=== PATIENT | female | born 1950 | race Caucasian/White ===

== ENCOUNTER 2017-07-29 14:24 | Observation (INO) | payer MEDICARE, OTHER ==
[2017-07-29] MEDS ORDERED: Nitroglycerin 2% Ointment 1 INCH/1 GM Packet ONE (15:16)
[2017-07-29 15:49] LABS: Troponin I Less than 0.010 ng/mL (< 0.028)
--- NOTE | 2017-07-29 16:13 | ULT ---
RIGHT UPPER QUADRANT ULTRASOUND 07/29/17 HISTORY: Right upper quadrant pain. FINDINGS: The pancreas and left lobe of the liver are not satisfactorily visualized. The right lobe of the live r demonstrates homogeneous echotexture without focal mass or intrahepatic ductal dilatation. The comm on duct measures 6 mm in diameter. There are echogenic foci with comet tail artifacts arising from th e wall of the gallbladder. No shadowing gallstones are seen. No gallbladder wall thickening or perich olecystic fluid is identified. there is mild prominence of the right renal pelvis. No free fluid seen in Doss's pouch. IMPRESSION: Adenomyomatosis of the gallbladder. POS: [facility]
[2017-07-29] MEDS ORDERED: Dronedarone HCl 400 MG TAB PO SCH (17:00)
[2017-07-29] MEDS ORDERED: Nitroglycerin 0.4 MG TAB (25 Tab Bottle) SL PRN (17:13)
[2017-07-29] MEDS ORDERED: Acetaminophen 325 MG TAB PO PRN (17:29)
[2017-07-29 17:35] VITALS: BMI 36.7
[2017-07-29 19:34] LABS: CKMB 0.6 ng/mL (0-6.6); Troponin I Less than 0.010 ng/mL (< 0.028)
[2017-07-29] MEDS: Famotidine 20 MG TAB PO SCH (19:43)
[2017-07-29] MEDS ORDERED: Famotidine/PF 20 mg/2ml Vial SLOW IVP SCH (21:00)
[2017-07-30] MEDS ORDERED: Dextrose 5 % And 0.9 % NaCl 1,000 ML IV SCH
--- NOTE | 2017-07-30 00:16 | HP ---
CHIEF COMPLIANT: Chest pain. HISTORY OF PRESENT ILLNESS: Patient is a 67-year-old female with past medical history of atrial fibr illation, status post ablation, hypothyroidism, low vitamin D level, who presented initially to [facility] ER with complaints of sore throat and chest pressure. Patient was given nitro x1, which relieved her sore throat and her chest pressure. Patient also underwent laboratory testing with initial trop onin, which was negative. EKG also was negative. No ST or T-wave depressions were noted except for T-wave inversions in the lateral leads. The patient was sent over to [facility] for cardi ac workup. Patient up in bed, alert, and oriented x3. Currently, does not have any chest pain or ch est pressure or chest discomfort. Patient stated that normally she is able to walk without any short ness of breath or any chest discomfort. The patient denies any orthopnea or PND. Patient states john t last night she did feel a little bit of palpitation; however, did not think much of it. Patient st ates that her chest pressure is similar to the one that she had when she was in atrial fibrillation. Patient also states that she has been feeling really well and has not felt this well since prior to her ablation. Patient also further states that she has had multiple stress tests, last year and lina chavez underwent a cardiac catheterization in approximately March or April. She does not recall th e exact time and she stated that her coronaries according to her top lift compresser, which is Dr. Ki cortez in [place], it was normal. Patient also states that she does have a significant history of cor onary artery disease with her mother, father, and her brothers, which concerns her. PAST MEDICAL HISTORY: Patient has history of hypothyroidism, atrial fibrillation status post ablatio n, hypothyroidism. PAST SURGICAL HISTORY: Includes hysterectomy, tonsillectomy, and bilateral knee surgery. HOME MEDICATIONS: Include Pradaxa 75 mg daily, diltiazem 240 mg daily, dronedarone, Multaq 400 mg p. o. b.i.d., Lasix 40 mg daily, Protonix 40 mg daily, sertraline 100 mg scheduled daily, [place] Thyroid 60 mg daily, fluticasone or Florinef 0.1 mg p.o. daily. ALLERGIES: She has allergies to LATEX and NATURAL RUBBER. FAMILY HISTORY: She has a family history, mother had open heart in age of 70 and had a stroke after that. Father had a history of CABG, unknown age when he had the CABG. Brother had open heart in his 60s that was her younger brother who . She has an older brother also has heart disease; however, he is still alive. SOCIAL HISTORY: She denies any history of smoking; however, does have secondhand smoking. Her husba nd denies occasional alcohol use. No other recreational drug use. REVIEW OF SYSTEMS: Ten point review of systems was performed, significant for chest discomfort, naus ea, but all other systems were negative except the one stated above. PHYSICAL EXAMINATION: VITAL SIGNS: Temperature of 98.4, pulse of 68, blood pressure 142/69, 96% on room air. GENERAL: Patient is awake, alert, oriented x3, does not appear in any distress. HEENT: Normocephalic, atraumatic. Mucous membranes are intact. No visible exudate noted on her ton sils. No erythema noted around her tonsils. NECK: Supple. No anterior cervical lymphadenopathy noted. LUNGS: Clear to auscultation. No rhonchi or wheezing noted. CARDIOVASCULAR: S1, S2 present, no murmurs, rubs, or gallops. Heart rate is regular. ABDOMEN: Soft, obese. Bowel sounds are present x2. She does have significant tenderness on palpati on of epigastric and right upper quadrant pain on palpation. No guarding. EXTREMITIES: No cyanosis, no clubbing, or edema noted. SKIN: Warm, moist, well perfused. No rashes or lesions noted. LABORATORY DATA: CBC: WBC of 8.6, hemoglobin of 15.3, hematocrit of 46.8, platelets of 234. D-dime r was less than 0.27. CK-MB was 0.8. Troponin initial was less than 0.010. Comprehensive metabolic panel: Sodium of 141, potassium of 4.1, chloride of 108, anion gap of 14, BUN of 14, creatinine 0.6 8, CO2 of 23. AST is 11, ALT was 10, alkaline phosphatase was mildly elevated at 226. Calcium was 9 .5. Glucose was 108, albumin was 4.1. EKG just showed some nonspecific T-wave inversions noted in V 4 and V5. She had a right upper quadrant ultrasound, which indicated adenomyomatosis of the gallblad leo. ASSESSMENT AND PLAN: Patient is a very pleasant 67-year-old female who presents to the ER with complaints of chest pain and pressure. 1. Chest pain, cardiac versus noncardiac. Patient's troponin x2 were negative. No significant EKG changes. I did review her EKG from her prior EKGs when she had her ablation done. She did have the same exact nonspecific T-wave changes. Patient did have a right upper quadrant ultrasound, which did not show any gallstones or any inflammation noted. She does have a mild alkaline phosphatase, which was mildly elevated. AST, ALT were normal. She does have some epigastric tenderness. We will star t her on Pepcid or will continue her Protonix that she gets at home. We will continue to trend tropo nins. We will start patient on aspirin 81 mg. We will check a lipid panel in the morning. We will get records from her top lift compresser in [place] since patient has had a series of stress test last and according to her, she had a cardiac catheterization since all her stress test has been negative . She did have a cardiac catheterization according to her in February, March, or April, which essentially, she was told, it was normal. Therefore, I will wait before I start her. If she had a r ecent cardiac catheterization in March or February with clean coronaries it would not be any benef it for her to get a repeat stress test. We will still keep n.p.o. after midnight just in case if the re are any of the results to come back in case I do have to do a stress test on her. 2. Mildly elevated alkaline phosphatase. Her right upper quadrant ultrasound just indicated she had an adenomyomatosis of the gallbladder, no gallstones were noted. No gallbladder wall thickening was noted either. We will continue to monitor. 3. Hypothyroidism. We will continue her home medications. 4. Atrial fibrillation, status post ablation, currently in sinus rhythm. We will continue her Martha xa and her diltiazem and Multaq.
[2017-07-30] MEDS ORDERED: Thyroid 60 MG TAB PO SCH (06:00)
[2017-07-30 06:19] LABS: ALT (SGPT) 9 U/L (8-55); AST (SGOT) 11 U/L (5-34); Albumin 3.4 g/dL (3.4-4.8); Alkaline Phosphatase 182 U/L (40-150); Anion Gap 12 mmol/L (10-20); BUN (Urea Nitrogen) 19 mg/dL (9.8-20.1); Bilirubin, Total 0.4 mg/dL (0.2-1.2); Calc. Creatinine Clearance 117 mL/min (70-130); Calcium 9.1 mg/dL (7.8-10.44); Carbon Dioxide 27 mmol/L (23-31); Cardiac Risk 4.7 (Less than 4.5); Chloride 108 mmol/L (98-107); Cholesterol 156 mg/dl (< 200 Desired); Estimated GFR-MDRD 75; Globulin 2.3 g/dL (2.4-3.5); Glucose 101 mg/dL (80-115); HDL Cholesterol 33 mg/dL (>60 Neg Risk); LDL Cholesterol, Calculated 104 mg/dL; Lipase 20 U/L (8-78); Potassium 4.6 mmol/L (3.5-5.1); Protein, Total 5.7 g/dL (6.0-8.3); Sodium 142 mmol/L (136-145); Triglycerides 93 mg/dL (Less than 150)
[2017-07-30] MEDS ORDERED: Fludrocortisone Acetate 0.1 MG TAB PO SCH (09:00)
[2017-07-30] MEDS ORDERED: Aspirin 325 MG TAB PO SCH (09:00)
[2017-07-30] MEDS ORDERED: Furosemide 40 MG TAB PO SCH (09:00)
--- NOTE | 2017-07-30 09:02 | RAD ---
PA AND LATERAL VIEWS CHEST: Date: 07/30/17 HISTORY: Low oxygen saturation. FINDINGS: The heart size is normal. The aorta is tortuous. The lungs are expanded without focal areas of consol idation, pneumothorax, or pleural effusions. Bones are osteopenic. IMPRESSION: No radiographic evidence of acute cardiopulmonary process. POS: [facility]
[2017-07-30] MEDS: Famotidine 20 MG TAB PO SCH (09:39)
[2017-07-30 12:59] VITALS: BP 142/71; TEMP 98.5
--- NOTE | 2017-07-30 13:21 | NM ---
CARDIAC SPECT: CLINICAL HISTORY: 67-year-old female with chest pain and atrial fibrillation. Status post ablation. TECHNIQUE: A stress-only myocardial perfusion scan was performed following the intravenous administration of 31 mCi technetium-99m sestamibi. Pharmacologic stress with Adenosine was monitored and interpreted by Lilia Cortez NP. FINDINGS: Homogeneous tracer distribution is seen in the myocardial segments on the post stress images. GATED SPECT LVEF: 73%. WALL MOTION EXAM: Normal. IMPRESSION: Normal post stress myocardial perfusion scan. POS: [facility]
--- NOTE | 2017-07-31 12:03 | DIS ---
DATE OF ADMISSION: 07/29/2017 DATE OF DISCHARGE: 07/30/2017 DISCHARGE DIAGNOSIS: Chest pain. SECONDARY DIAGNOSES: 1. History of atrial fibrillation status post ablation, currently on anticoagulation. 2. History of depression. 3. Hypothyroidism. 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 The patient initially was seen at the outside hospital. Initial troponin was negative. An EK G had nonspecific T-wave changes in her lateral leads. The patient was given nitro x1, which resolve d her sore throat and her chest pain and she was transferred here for further evaluation. The patien t stated that she has had multiple stress tests done in the past and also had a cardiac catheterizati on done; however, she could not recall the year she had the cardiac cath done. Records were obtained from her hospital in [place] which indicated that she did have a cardiac catheterization back in which did not require any intervention. Since her cath was done a while back and she did have so me risk factors she underwent a stress test with perfusion scan which was negative. The patient had troponin trended x3, which were negative. No EKG changes. The patient's chest pain resolved. She a lso had some mild elevated alkaline phosphatase, for which she underwent a right upper quadrant ultra sound which indicated no gallstones. However, she did have adenomyomatosis of the gallbladder. The patient was explained that this was just mild thickening around the gallbladder and she needed to fol low up with her PCP for reevaluation to keep an eye on it. 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 PHYSICAL EXAMINATION: GENERAL: The patient was awake, alert, oriented x3. RESPIRATORY: Lungs were clear to auscultation. CARDIAC: S1, S2 are present. No murmurs, rubs or gallops. ABDOMEN: Soft, nontender. Bowel sounds are present x2. DISCHARGE DISPOSITION: The patient was discharged home.
== END 2017-07-30 15:08 | disposition home or self-care (01) ==
LOC: ERS 14:24 → 2SW 15:14
PROVIDERS: ADMIT Internal Medicine; ATTEND Internal Medicine
DX: R07.89 Other chest pain (principal); I48.91 Unspecified atrial fibrillation; E03.9 Hypothyroidism, unspecified; F32.9 Major depressive disorder, single episode, unspecified; Z91.040 Latex allergy status; Z79.899 Other long term (current) drug therapy; Z90.710 Acquired absence of both cervix and uterus; Z98.890 Other specified postprocedural states
CPT/HCPCS: 71046; 76705; 78452; 80053; 80061; 82553; 83690; 84484; 93017; 94760 ×2; 99285; A9500; G0378; 36415; J0153